=== PATIENT | female | born 1940 | race Caucasian/White ===

== ENCOUNTER → 2017-09-27 | Outpatient (CLI) | payer OTHER ==
[~2017-09-27] VITALS: Ht 160 cm; Wt 60.8 kg
[~2017-09-27] MED LIST: ALEVE220 MG PO; ASPIRIN81 M2 PO; CALCIUM 600 +1 EAC1 PO; COQ-10100 MG PO; FOSAMAX 70 MG T70 MG PO; NAPROSYN500 MG PO; NORFLEX100 MG PO; RED YEAST RICE600 M1 PO; SPIRIVA18 MCG INH; UNICOMPLEX M TA1 TA1 PO
--- NOTE | ~2017-09-27 | HPC ---
[facility] [address] [place] [address] PAIN MANAGEMENT CONSULTATION Name: JOSE STEINBERG [id number] Admission: 09/27/17 Attend Phys: Alexis Arnold DO Discharge: Date of : 42 Report #: [id number] THIS REPORT FOR: //name// CC: Alexis Parisi MD DATE OF SERVICE: 09/27/2017 REFERRING PHYSICIAN: Mary Beth Parisi MD CHIEF COMPLAINT: Low back pain, right lower extremity pain and paresthesias. HISTORY OF PRESENT ILLNESS: As you know, the patient is a 77-year-old female who has been experiencing low back pain and right lower extremity pain since 05/2017. The patient has trialed conservative medical therapy including 6 weeks of formalized physical therapy. Despite these treatment options, her pain remains at level of 5/10. She indicates that assistance in pain was noted with the physical therapy, but it is not sustained. She denies injury or trauma that may have led to symptom development. She has been referred to our service without any imaging studies to evaluate her low back further. She indicates pain is periodic, describes the pain as shooting and pulling. Places current pain score 5/10, daily average at 5/10, and worst pain has been 10/10. The patient states that sleeping, sitting for any length of time exacerbates her symptoms. Movement and stretching appears to improve her pain. She has been referred to our service for suspected lumbar radiculopathy. PAST MEDICAL HISTORY: 1. Lung disease. 2. Emotional problems. 3. Cervical cancer. PAST SURGICAL HISTORY: 1. Hysterectomy. 2. Herniorrhaphy. 3. Shoulder repair. SOCIAL HISTORY: The patient continues to smoke half pack tobacco per day and has done so for greater than 40 years. Denies IV or illicit drug use. Admits to 4 alcohol beverages per week. She is retired. She retired in 06/2017. She is unaccompanied at today's visit. REVIEW OF SYSTEMS: Positive for eye disease, wearing corrective eyewear, cataracts, shortness of breath with walking, lying flat, low back pain, right lower extremity pain with paresthesias. All other review of systems negative per 12-point review of systems other than those listed in the history of present [address] [address] PAIN MANAGEMENT CONSULTATION Name: MARYANJOSE Room #: REG [facility] Delfina#: [id number] Admission: 09/27/17 Attend Phys: Alexis Arnold DO Discharge: Date of : 42 Report #: [id number] illness. Pain impact score 35/70 indicating moderate interference of daily activities secondary to pain. ALLERGIES: PENICILLIN. CURRENT MEDICATIONS: Calcium carbonate, vitamin D, Aleve, coenzyme Q, aspirin, Spiriva, red rice yeast extract. IMAGING: No imaging available. PHYSICAL EXAMINATION: VITAL SIGNS: Blood pressure 160/86, pulse is 92, respiratory rate 16, unlabored. The patient is 97% on room air. Height 5 feet 3 inches tall, weight 134 pounds, BMI calculated 23.7. GENERAL: Well-developed, well-nourished, well-hydrated 77-year-old female appearing her stated age, placing current pain score 5/10. HEENT: Normocephalic, atraumatic. Pupils equal, round, reactive to light. Extraocular muscles are intact. NEUROLOGIC: Speech is fluent. The patient deemed a good historian. LUNGS: Clear, no wheeze, rhonchi or rales. CARDIOVASCULAR: Regular. No appreciable gallop or rub. ABDOMEN: Soft, nontender, nondistended, normoactive bowel sounds. EXTREMITIES: Show no clubbing, no cyanosis, no edema. MUSCULOSKELETAL: Lower extremity strength appears equal and symmetrical 5/5, intact to light touch from L1 through S2 dermatomes. Seated straight leg raising negative. Supine straight leg raising positive on the right. Fern test negative. Modified Gaenslen's positive for axial low back pain. Ankle clonus negative. Babinski is negative. Gait mildly antalgic favoring right lower extremity over left. ASSESSMENT: 1. Symptomatic lumbar radiculopathy. 2. Lumbosacral spondylosis with radicular symptoms. 3. Chronic intractable pain. PLAN: 1. The patient has been referred to our service for what appears to be lumbar radicular symptoms. The patient has trialed conservative medical therapy with 6 weeks of formalized physical therapy program as well as [id number] medication management. Unfortunately, the patient's symptoms have not improved. She has been referred to us today for a suspected lumbar radiculopathy. Unfortunately, the patient comes to us without any type of imaging to assist in determining the source of the symptoms whether this be neural foraminal stenosis, central canal stenosis, a disk protrusion or even arthritic changes [address] [address] PAIN MANAGEMENT CONSULTATION Name: JOSE STEINBERG Room #: REG [facility] Mathis#: [id number] Admission: 09/27/17 Attend Phys: Alexis Arnold DO Discharge: Date of : 42 Report #: [id number] causing stenotic changes. We have discussed with the patient today that imaging would be quite helpful in determining whether or not surgical options may be necessary. The patient was amenable to begin with her imaging studies. She is also considering a lumbar epidural injection and other treatment option that we provided the patient today. The following was provided at this visit. 2. The patient will undergo x-ray imaging of the lumbar spine. We will review the findings once they are available. The patient was sent for x-ray imaging today. We reviewed the x-ray imaging once she returned and does show some fairly significant arthritic changes in the lumbar area. There is some disk height loss. I do feel that further evaluation will be necessary as this does not provide us significant amount of information to help determine whether or not a soft tissue issues are causing the symptoms the patient is currently experiencing. We will be sending the patient for MRI of lumbar spine without contrast. The patient will undergo the imaging studies quickly as possible and return with the results so that we may review further. She was provided a prescription for the MRI today. She will fill this prescription over this next week and will review the findings at followup visit. 3. The patient and I did discuss the risks and benefits of the requested epidural injection. These risks include but not necessarily limited to bleeding, bruising, infection, worsening pain, no relief of pain, also risk of temporary or permanent muscle weakness, temporary or permanent nerve damage, possible paralysis and . The patient states understood and wished to proceed. I did advise the patient at this time that third republican payer restrictions require that authorization be obtained before the patient can undergo an epidural injection. We will begin the authorization process immediately. Once we have achieved this authorization, we will contact the patient to establish a return visit for the first in a series of epidural injections to address lumbar radicular symptoms. 4. No medication changes were provided at today's visit. The patient will continue current medical therapy as previously prescribed. 5. We will see the patient back in followup visit. Once she has completed her MRI and we have received precertification for the patient to undergo the epidural injection requested. 6. We wish to thank the referring physician, Dr. Parisi for the opportunity to see the patient in consultation. We will keep you apprised of her response to treatment as we address suspected lumbar radiculopathy. Again, we wish to thank you for the opportunity to participate in her care. <ELECTRONICALLY SIGNED> By: Alexis Arnold DO 09/28/17 0800 1603 2325 Alexis Arnold DO /nt
[2017-09-27 09:23] VITALS: BP 160/86
== END ==
LOC: PAIN 07:18
DX: M48.061 Spinal stenosis, lumbar region without neurogenic claudication (principal); M41.86 Other forms of scoliosis, lumbar region; M54.16 Radiculopathy, lumbar region; M47.897 Other spondylosis, lumbosacral region; G89.29 Other chronic pain; Z90.710 Acquired absence of both cervix and uterus; Z85.41 Personal history of malignant neoplasm of cervix uteri; Z98.890 Other specified postprocedural states; Z87.891 Personal history of nicotine dependence; Z72.89 Other problems related to lifestyle

== ENCOUNTER → 2017-10-06 | Outpatient (CLI) | payer OTHER | LOC: MRI 09:05 | DX: S33.100A Subluxation of unspecified lumbar vertebra, initial encounter (principal); M48.061 Spinal stenosis, lumbar region without neurogenic claudication; X58.XXXA Exposure to other specified factors, initial encounter; Y93.89 Activity, other specified; Y92.89 Other specified places as the place of occurrence of the external cause; Y99.8 Other external cause status ==

== ENCOUNTER → 2018-02-14 | Outpatient (CLI) | payer OTHER ==
[~2018-02-14] VITALS: Ht 157.5 cm; Wt 58.0 kg
--- NOTE | ~2018-02-14 | HPC ---
[facility] [place] [address] PAIN MANAGEMENT CONSULTATION Name: JOSE STEINBERG Room #: REG [facility] MBisi.#: [id number] Admission: 02/14/18 Attend Phys: Alexis Arnold DO Discharge: Date of : 42 Report #: [id number] THIS REPORT FOR: //name// CC: Alexis Parisi MD DATE OF SERVICE: 02/14/2018 REFERRING PHYSICIAN: Mary Beth Parisi MD CHIEF COMPLAINT: Low back pain, right lower extremity pain and paresthesias. HISTORY OF PRESENT ILLNESS: As you know, the patient is a 77-year-old female who returns today in followup visit with recurrent low back pain, right lower extremity pain. She is now placing pain score 7-8/10. She reports 100% improvement in overall pain with the epidural injection provided 10/12/2017. Unfortunately, the patient's symptoms have begun to return. She denies new injury or new trauma or any changes in medical history since our last visit. She describes the pain as sharp, sore, numbness and tingling; sitting and rising in the morning exacerbates symptoms, stretching, medications and epidural injections have improved pain. She returns today in followup visit requesting to undergo next in the series of epidural injections to build on success of previous intervention. ALLERGIES: PENICILLIN. CURRENT MEDICATIONS: Coenzyme Q 100 mg once a day, naproxen 220 mg 3 times a day, multivitamin 1 tab per day, calcium carbonate 1 tab per day, red yeast rice extract 600 mg once a day, aspirin 81 mg per day, and Spiriva 18 g inhaled once a day. SOCIAL HISTORY: The patient is an everyday smoker, half pack tobacco per day and has done so for 55 years. Denies IV or illicit drug use, admits to approximately 2 alcoholic beverages per day. IMAGING: None available. PQRS: The patient has known osteoarthritis. No rheumatoid arthritis. Pain intensity today is 7-8/10. She is not a fall risk, has not had a fall in the last 3 months. She is not on blood thinner. She is not treated for hypertension. She has not been on opioids for a long period of time. She has a low assessment for opioid addiction. She is placing pain impact score/functional assessment at 20/70. PHYSICAL EXAMINATION: [facility] [address] [place] [address] PAIN MANAGEMENT CONSULTATION Name: JOSE STEINBERG Room #: REG [facility] Delfina#: [id number] Admission: 02/14/18 Attend Phys: Alexis Arnold DO Discharge: Date of : 42 Report #: [id number] VITAL SIGNS: Blood pressure 150/85, pulse 101, respiratory rate 16 and unlabored, the patient is 96% on room air, height 5 feet 2 inches tall, weight 127.8 pounds, and BMI calculated 23.4. GENERAL: Well-developed, well-nourished, well-hydrated 77-year-old female, appearing stated age, placing current pain score 7-8/10. HEENT: Normocephalic, atraumatic. Pupils are equal, round, and reactive to light. Extraocular muscles are intact. EXTREMITIES: Show no clubbing, no cyanosis, and no edema. MUSCULOSKELETAL: Lower extremity strength is symmetrical 5/5. She is intact to light touch from L1 through S2 dermatomes. Seated straight leg raising negative. Supine straight leg raising is positive on the right. Fern's test negative. Modified Gaenslen's positive for axial low back pain. Gait mildly antalgic favoring right lower extremity over left. ASSESSMENT: 1. Symptomatic lumbar radiculopathy. 2. Lumbosacral spondylosis with radiculopathy. 3. Spinal stenosis of lumbar spine. 4. Displacement of a lumbar intervertebral disk with radiculopathy. 5. Chronic intractable pain. PLAN: 1. The patient has returned today in followup visit requesting to undergo epidural injection under fluoroscopic guidance. The patient has noted excellent benefit with previous epidural injection with 100% improvement in overall pain lasting for nearly 3 months. The patient returns stating no new injury and no new trauma that may have led to recurrence of symptoms. She is requesting and we will perform a lumbar epidural injection today. The patient was advised of the risks and benefits of the procedure, states understood and wished to proceed. 2. No medication changes were made at today's visit. The patient to continue current medical therapy as previously prescribed. 3. The patient to return to our clinic on an as needed basis for the next in a series of epidural injections. PROCEDURE NOTE DESCRIPTION OF PROCEDURE: L5-S1 right paramedian epidural steroid injection under fluoroscopic guidance. This is the second procedure of the first series that the patient is undergoing. After obtaining written consent, the patient was taken back to the fluoroscopy suite, placed in a prone position with pillow under the abdomen to decrease lumbar lordosis. The skin overlying the lumbosacral area was then prepped and draped in aseptic fashion. The L5-S1 vertebral interspace was then identified [address] [address] PAIN MANAGEMENT CONSULTATION Name: JOSE STEINBERG Room #: REG Queenie Villalobos#: [id number] Admission: 02/14/18 Attend Phys: Alexis Arnold DO Discharge: Date of : 42 Report #: [id number] by AP fluoroscopy. The skin and subcutaneous tissue overlying the target site of injection was anesthetized with 3 mL 1% lidocaine. A 20-gauge 3-1/2-inch Tuohy needle was then advanced under fluoroscopic guidance towards the epidural space using a right paramedian approach. The epidural space was identified using loss of resistance to air technique. After negative aspiration for heme or cerebrospinal fluid, a total of 1 mL of Omnipaque was injected. A lumbar epidurogram was confirmed using both AP and lateral fluoroscopy. After negative aspiration for heme or cerebrospinal fluid, 5 mL of a solution containing 2 mL 40 mg per mL, 80 mg total triamcinolone, 3 mL lidocaine 1% was injected in increments. Contrast spread was noted posterior epidural space. The needle was then retracted approximately half way and needle tract flushed with 1 mL of 1% lidocaine. Needle was then removed. There were no apparent sensory or motor deficits in the lower extremity following the procedure. A sterile bandage was placed over the injection site. The heart rate, pulse, oximetry and blood pressure were continuously monitored after the procedure. There were no apparent complications. The patient tolerated the procedure well and was carefully escorted to the recovery room in stable condition. There were no apparent complications. After meeting discharge criteria, the patient was then discharged home. <ELECTRONICALLY SIGNED> By: Alexis Arnold DO 02/22/18 1207 1001 1132 Alexis Arnold DO /nt
[2018-02-14 09:03] VITALS: BP 150/85
== END | disposition home or self-care (01) ==
LOC: PAIN 10-26 14:22
DX: M47.27 Other spondylosis with radiculopathy, lumbosacral region (principal); M48.061 Spinal stenosis, lumbar region without neurogenic claudication; M51.16 Intervertebral disc disorders with radiculopathy, lumbar region; G89.29 Other chronic pain; M19.90 Unspecified osteoarthritis, unspecified site; Z79.899 Other long term (current) drug therapy; F17.210 Nicotine dependence, cigarettes, uncomplicated; Z88.0 Allergy status to penicillin; Z79.82 Long term (current) use of aspirin; Z98.890 Other specified postprocedural states

== ENCOUNTER → 2018-08-02 | Outpatient (CLI) | payer OTHER ==
[~2018-08-02] VITALS: Ht 157.5 cm; Wt 56.6 kg
--- NOTE | ~2018-08-02 | HPC ---
[facility] [address] [place] [address] PAIN MANAGEMENT CONSULTATION Name: JOSE STEINBERG Room #: REG CLQueenie Griselda.#: [id number] Admission: 08/02/18 Attend Phys: Alexis Arnold DO Discharge: Date of : 42 Report #: [id number] THIS REPORT FOR: //name// CC: Alexis Parisi MD DATE OF SERVICE: 08/02/2018 CHIEF COMPLAINT: Low back pain, right lower extremity pain with paresthesias. HISTORY OF PRESENT ILLNESS: As you know, the patient is a very pleasant 77-year-old female who returns today in followup visit with recurrent low back pain, right lower extremity pain with paresthesias. She indicates pain is sharp and sore in sensation. She places pain score at 8/10. States that sitting, getting up in the morning exacerbate symptoms. Stretching medication management and previous epidural injection provided excellent benefit. She reports 100% improvement in overall pain with previous epidural injection lasting for almost 3 months. Unfortunately, the patient has had a slow and progressive return of symptoms. She returns today requesting epidural injection to build on success of previous intervention. She denies any injury or trauma that has led to recurrence of symptoms. ALLERGIES: PENICILLIN. CURRENT MEDICATIONS: Tiotropium bromide, aspirin, red yeast rice extract, calcium carbonate, multivitamin, naproxen, coenzyme Q. SOCIAL HISTORY: The patient is an everyday smoker, half pack of tobacco per day and has done so for 55+ years. Denies IV or illicit drug use. Admits to 2 alcohol beverages per day. She is retired, unaccompanied today. IMAGING: No new imaging available. PQRS: The patient has known osteoarthritis of the low back, bilateral hips and bilateral knees. She has no rheumatoid arthritis. She places pain intensity today around 8/10. She is not a fall risk, has not had a fall in the last 3 months. She is not on blood thinners, not treated for hypertension. She has not been on opioids, has a low opioid addiction potential. Pain impact score is rated today at 20/70, mild to moderate. PHYSICAL EXAMINATION: VITAL SIGNS: Blood pressure 140/90, pulse is 85, respiratory rate 16, unlabored. The patient is 93% on room air. Height 5 feet 2 inches tall, weight 124.8 pounds, BMI calculated 22.8. GENERAL: Well-developed, well-nourished, well-hydrated 77-year-old female, [address] [address] PAIN MANAGEMENT CONSULTATION Name: JOSE STEINBERG Room #: REG CLI [facility]BisiElizabetBisi#: [id number] Admission: 08/02/18 Attend Phys: Alexis Arnold DO Discharge: Date of : 42 Report #: [id number] appearing her stated age. She is placing pain score today 8/10. HEENT: Normocephalic, atraumatic. Pupils equal, round, reactive to light. Extraocular muscles are intact. Sclerae nonicteric without injection. NEUROLOGIC: Cranial nerves 2-12 grossly intact. Speech is fluent. EXTREMITIES: Show no clubbing, no cyanosis, no edema. MUSCULOSKELETAL: Lower extremity strength is symmetrical, again today 5/5, intact to light touch from L1 through S2 dermatomes. Seated straight leg raising negative. Supine straight leg raising remains positive right at about 40 degrees. Fern's test negative. Modified Gaenslen's is positive for axial low back pain. Gait mildly antalgic again favoring right lower extremity over left. Ankle clonus negative. Babinski is negative. ASSESSMENT: 1. Symptomatic lumbar radiculopathy. 2. Spinal stenosis of lumbar spine. 3. Displacement of lumbar intervertebral disk with radiculopathy. 4. Lumbosacral spondylosis with radiculopathy. 5. Chronic intractable pain. PLAN: 1. The patient returns today in followup visit requesting to undergo epidural injection under fluoroscopic guidance. The patient reports 100% improvement in overall pain with the epidural injection provided at last visit. She had 3 months' worth of improvement in symptoms prior to return of symptoms. She returns requesting this epidural injection to build on success of previous intervention. I have advised the patient the risks and benefits, states she understood and wished to proceed. 2. No medication changes made at today's visit. The patient to continue current medical therapy as previously prescribed. 3. The patient to return to our clinic on an as needed basis for the next in the series of epidural injections. <ELECTRONICALLY SIGNED> By: Alexis Arnold DO 08/08/18 1259 1020 1436 Alexis Arnold DO /nt
--- NOTE | ~2018-08-02 | P ---
[facility] [place] [address] [place] [address] PROCEDURE REPORT Name: JOSE STEINBERG Room #: REG [facility] Delfina#: [id number] Admission: 08/02/18 Attend Phys: Alexis Arnold DO Discharge: Date of : 42 Report #: [id number] THIS REPORT FOR: //name// CC: Alexis Parisi MD DATE OF SERVICE: 08/02/2018 DESCRIPTION OF PROCEDURE: L5-S1 right paramedian epidural steroid injection under fluoroscopic guidance. After obtaining written consent, the patient was taken back to fluoroscopy suite, placed in prone position with pillow under abdomen to decrease lumbar lordosis. Skin overlying lumbosacral area then prepped and draped in aseptic fashion. Lumbar intervertebral spaces were identified by AP fluoroscopy. Skin and subcutaneous tissue overlying target site of injection was anesthetized with 3 mL of 1% lidocaine. A 20-gauge 3-1/2-inch Tuohy needle advanced under fluoroscopic guidance towards the epidural space using a right paramedian approach. Epidural space identified using loss of resistance to air technique. After negative aspiration for heme or cerebrospinal fluid, 1 mL of Omnipaque injected. Lumbar epidurogram confirmed using both AP and lateral fluoroscopy. After negative aspiration for heme or cerebrospinal fluid, 5 mL of a solution containing 2 mL 40 mg per mL, 80 mg total triamcinolone, 3 mL lidocaine 1% injected slowly. Needle retracted retirement, flushed with 1 mL of 1% lidocaine and removed. Sterile bandage placed over injection site. No new motor deficits present in lower extremity following procedure. The patient tolerated procedure well, carefully escorted to recovery room in stable condition. No apparent complication. After meeting discharge criteria, the patient discharged home. <ELECTRONICALLY SIGNED> By: Alexis Arnold DO 08/08/18 1259 1020 1440 Alexis Arnold DO /nt
[2018-08-02 08:55] VITALS: BP 148/90
== END | disposition home or self-care (01) ==
LOC: PAIN 06:39
DX: M51.16 Intervertebral disc disorders with radiculopathy, lumbar region (principal); M48.061 Spinal stenosis, lumbar region without neurogenic claudication; M47.27 Other spondylosis with radiculopathy, lumbosacral region; G89.29 Other chronic pain; F17.210 Nicotine dependence, cigarettes, uncomplicated; Z88.0 Allergy status to penicillin; Z79.82 Long term (current) use of aspirin

== ENCOUNTER → 2018-12-26 | Outpatient (CLI) | payer OTHER ==
[~2018-12-26] VITALS: Ht 157.5 cm; Wt 53.9 kg
[~2018-12-26] MED LIST changes: +ALENDRONATE SOD70 MG PO; +BREO ELLIPTA 11 EACH INH; +RED YEAST RICE600 MG PO; +VENTOLIN HFA 1818 GM
[2018-12-26 09:34] VITALS: BP 170/90
--- NOTE | 2018-12-26 09:53 | NUR ---
Pain Clinic Assessment: 1. History of Osteoarthritis: HANDS History of Rheumatoid Arthritis: Not Applicable 2. Height: 5 ft. 2 in. 157.5 cm. Weight: 118.8 lb. oz. 53.887 kg. Patient's BMI: 21.7 3. Vital Signs: BP: 170/90 Pulse: 88 Resp: 18 Temp: 02 Sat: 100 ECG Mon: 4. Pain Intensity: 7 5. Fall Risk: Dizziness: N Needs help standing or walking: N Fallen in the last 3 months: N Fall risk comments: 6. Patient on Blood Thinner: None 7. History of Hypertension: N 8. Opioid Therapy greater than 6 weeks: N Opiate Contract Signed: 9. Risk Assessment Tool Provided: LOW RISK 0/3 10. Functional Assessment Tool: 11. Recreational Drug Use: Never Drug Type: Tobacco Use: Current Every Day Smoker Tobacco Type: Cigarettes Amount or Packs/day: 0.5 How Many Years: 50 Alcohol Use: Yes Frequency: Weekly Quant:
--- NOTE | 2019-01-02 07:34 | HPC ---
[facility] [address] [place] [address] PAIN MANAGEMENT CONSULTATION Name: JOSE STEINBERG Room #: REG ONEAL Griselda.#: [id number] Admission: 12/26/18 ������������������ Attend Phys: Alexis Arnold DO Discharge: ������������������ Date of : 44 Report #: [id number] THIS REPORT FOR: //name// CC: Alexis Parisi MD DATE OF SERVICE: 12/26/2018 CHIEF COMPLAINT: Low back pain, right lower extremity pain and paresthesias. HISTORY OF PRESENT ILLNESS: As you know, the patient is a very pleasant 78-year-old female returning in followup visit requesting to undergo next in the series of lumbar epidural injections under fluoroscopic guidance. The patient indicates good efficacy with previous epidural injection up to 90% improvement in overall pain. Unfortunately, her symptoms have begun to return, now reporting about 70% overall. She returns requesting to undergo a lumbar epidural injection under fluoroscopic guidance to build on success of previous intervention. She denies injury or trauma that may have led to symptom recurrence. It is also noted the patient's blood pressure is elevated, but has been elevated in each visit since our initial visit. We recommend the patient follow up with her PCP in regards to this. ALLERGIES: PENICILLIN. CURRENT MEDICATIONS: Coenzyme Q, naproxen, multivitamin, calcium carbonate, red yeast rice extract, aspirin, Spiriva. SOCIAL HISTORY: The patient is an everyday smoker, half pack tobacco per day and has done so for greater than 55 years. Denies IV or illicit drug use. Admits to 2 alcohol beverages per day. She is unaccompanied today. IMAGING: No new imaging available. PQRS: The patient has known arthritic changes of the bilateral hands, bilateral wrists, low back and bilateral hips. No rheumatoid arthritis. Pain intensity today is rated anywhere to 7-8/10. She is not a fall risk and has not had a fall in the last 3 months. She is not on blood thinners. She is not treated for hypertension. She has not been on in long-term opioids. She has a low assessment for opioid addiction. Pain impact score 22/70 [id number] interference of daily activity secondary to pain. PHYSICAL EXAMINATION: GENERAL: Well-developed, well-nourished, well-hydrated 78-year-old female appearing her stated age, placing current pain score up to 6/10. HEENT: Normocephalic, atraumatic. Pupils equal, round, reactive to light. [facility] [address] [place] [address] PAIN MANAGEMENT CONSULTATION Name: JOSE STEINBERG Room #: REG CLI [facility].#: [id number] Admission: 12/26/18 ������������������ Attend Phys: Alexis Arnold DO Discharge: ������������������ Date of : 42 Report #: [id number] EXTREMITIES: Show no clubbing, no cyanosis, no edema. MUSCULOSKELETAL: Lower extremity strength is symmetrical 5/5, intact to light touch from L1 through S2 dermatomes. Seated straight leg raising negative. Supine straight leg raising positive right. ASSESSMENT: 1. Symptomatic lumbar radiculopathy. 2. Lumbosacral spondylosis with radiculopathy. 3. Spinal stenosis of the lumbar spine. 4. Displacement of lumbar intervertebral disk with radiculopathy. 5. Chronic intractable pain. PLAN: 1. The patient has returned today in followup visit requesting to undergo a lumbar epidural injection under fluoroscopic guidance. As you are aware, the patient did very well with previous epidural injection, near 100% improvement in overall pain lasting for an extended period of time, there has been a reduction in the efficacy of this down to 70% improvement. There is ongoing. She returns today in followup visit to undergo next in the series of epidural injections. She has been advised the risks and benefits, states understood and wished to proceed. 2. The patient's blood pressure remains elevated today and has been elevated at prior evaluations. The patient's initial evaluation, blood pressure was 160/86, followup visit was 160/88 and a third followup visit has blood pressure at 150/85 and her last visit was blood pressure of 148/90. Blood pressure today is 170/80. We have recommended the patient follow up with the PCP in regards to possible treatment for essential hypertension. 3. No medication changes made at today's visit. The patient will continue current medical therapy as previously prescribed. 4. We will see the patient back in followup visit on an as needed basis for next in the series of lumbar epidural injections. PROCEDURE NOTE DESCRIPTION OF PROCEDURE: L5-S1 right paramedian epidural steroid injection under fluoroscopic guidance. This is the third procedure of the first series that the patient is undergoing. After obtaining written consent, the patient was taken back to the fluoroscopy suite, placed in a prone position with pillow under the abdomen to decrease lumbar lordosis. The skin overlying the lumbosacral area was then prepped and draped in aseptic fashion. The L5-S1 vertebral interspace was then identified by AP fluoroscopy. The skin and subcutaneous tissue overlying the target site of injection was anesthetized with 3 mL 1% lidocaine. [address] [address] PAIN MANAGEMENT CONSULTATION Name: JOSE STEINBERG Room #: REG ONEAL Mathis#: [id number] Admission: 12/26/18 ������������������ Attend Phys: Alexis Arnold DO Discharge: ������������������ Date of : 42 Report #: [id number] An 20 gauge 3.5 inch Tuohy needle was then advanced under fluoroscopic guidance towards the epidural space using a right paramedian approach. The epidural space was identified using loss of resistance to air technique. After negative aspiration for heme or cerebrospinal fluid, a total of 1 mL of Omnipaque was injected. A lumbar epidurogram was confirmed using both AP and lateral fluoroscopy. After negative aspiration for heme or cerebrospinal fluid, 5 mL of solution containing 2 mL 40 mg/mL 80 mg triamcinolone, 3 mL lidocaine 1% was injected in increments. Contrast spread was noted post epidural space. The needle was then retracted approximately half way and needle tract flushed with 1 mL of 1% lidocaine. Needle was then removed. There were no apparent sensory or motor deficits in the lower extremity following the procedure. A sterile bandage was placed over the injection site. The heart rate, pulse, oximetry and blood pressure were continuously monitored after the procedure. There were no complications. The patient tolerated the procedure well and was carefully escorted to the recovery room in stable condition. There were no apparent complications. After meeting discharge criteria, the patient was then discharged home. ��������������������������������������������� <ELECTRONICALLY SIGNED> ���������������������������������������� By: Alexis Arnold DO ��������������������������������������������� 01/02/19 0734 [id number] Alexsi Arnold DO /nt
== END | disposition home or self-care (01) ==
LOC: PAIN 06:48
DX: M51.16 Intervertebral disc disorders with radiculopathy, lumbar region (principal); M47.27 Other spondylosis with radiculopathy, lumbosacral region; M48.061 Spinal stenosis, lumbar region without neurogenic claudication; G89.29 Other chronic pain; F17.210 Nicotine dependence, cigarettes, uncomplicated; M19.90 Unspecified osteoarthritis, unspecified site; Z79.899 Other long term (current) drug therapy; Z88.0 Allergy status to penicillin; Z79.82 Long term (current) use of aspirin; Z98.890 Other specified postprocedural states

== ENCOUNTER → 2019-04-17 | Outpatient (CLI) | payer OTHER ==
[~2019-04-17] VITALS: Ht 157.5 cm; Wt 51.2 kg
[2019-04-17 09:52] VITALS: BP 189/107
--- NOTE | 2019-04-17 10:07 | NUR ---
Pain Clinic Assessment: 1. History of Osteoarthritis: HANDS History of Rheumatoid Arthritis: Not Applicable 2. Height: 5 ft. 2 in. 157.5 cm. Weight: 112.8 lb. oz. 51.166 kg. Patient's BMI: 20.6 3. Vital Signs: BP: 189/107 Pulse: 90 Resp: 14 Temp: 02 Sat: 97 ECG Mon: 4. Pain Intensity: 9 5. Fall Risk: Dizziness: N Needs help standing or walking: Y Fallen in the last 3 months: N Fall risk comments: 6. Patient on Blood Thinner: None 7. History of Hypertension: N 8. Opioid Therapy greater than 6 weeks: N Opiate Contract Signed: 9. Risk Assessment Tool Provided: LOW RISK 0/3 10. Functional Assessment Tool: 11. Recreational Drug Use: Never Drug Type: Tobacco Use: Current Every Day Smoker Tobacco Type: Cigarettes Amount or Packs/day: 1/2-1 PACK How Many Years: Alcohol Use: Yes Frequency: Weekly Quant: 1-2
--- NOTE | 2019-04-25 12:17 | HPC ---
[facility] [place] [address] PAIN MANAGEMENT CONSULTATION Name: JOSE STEINBERG [id number] Admission: 04/17/19 ������������������ Attend Phys: Alexis Arnold DO Discharge: ������������������ Date of : 44 Report #: [id number] THIS REPORT FOR: //name// CC: MARY BETH Parisi DATE OF SERVICE: 04/17/2019 REFERRING PHYSICIAN: Mary Beth Parisi MD. CHIEF COMPLAINT: Low back pain, right lower extremity pain with paresthesias. HISTORY OF PRESENT ILLNESS: As you know, the patient is a 78-year-old female returning in followup visit, requesting to undergo next in the series of lumbar epidural injections under fluoroscopic guidance. She reports pain today at level of 9/10. She states the pain is sharp and shooting in sensation, exacerbated with standing and walking, improves with medications and previous epidural injection, which gave 100% improvement in overall pain, lasting for nearly 3 months. She returns today in followup visit requesting to undergo this epidural injection to build on success of previous intervention. ALLERGIES: PENICILLIN. CURRENT MEDICATIONS: Coenzyme Q, naproxen, multivitamin, calcium carbonate, red yeast rice extract, aspirin, Spiriva. SOCIAL HISTORY: The patient is an everyday smoker, half pack tobacco per day, has done so for greater than 55 years. Denies IV or illicit drug use. Denies any chronic alcohol use. She is unaccompanied today. IMAGING: No imaging is available. PHYSICAL EXAMINATION: VITAL SIGNS: Blood pressure 189/107, pulse is 90, respiratory rate 14 and unlabored. The patient is 97% on room air. Height 5 feet 2 inches tall, weight 112.8 pounds, BMI calculated 20.6. GENERAL: Well-developed, well-nourished, well-hydrated 78-year-old female. She is in no acute distress. Pain is rated around 9/10. HEENT: Normocephalic, atraumatic. Pupils equal, round, reactive to light. Speech is fluent. EXTREMITIES: Show no clubbing, no cyanosis and no edema. MUSCULOSKELETAL: Lower extremity strength remains symmetrical again today 5/5, intact to light touch from L1 through S2 dermatomes. Seated straight leg raising negative. Supine straight leg raising positive on the left. Fern test negative. Modified Gaenslen's positive for axial low back pain. [facility] [address] [place] [address] PAIN MANAGEMENT CONSULTATION Name: JOSE STEINBERG Room #: REG CL Delfina#: [id number] Admission: 04/17/19 ������������������ Attend Phys: Alexis Arnold DO Discharge: ������������������ Date of : 44 Report #: [id number] ASSESSMENT: 1. Symptomatic lumbar radiculopathy. 2. Spinal stenosis of the lumbar spine. 3. Displacement of lumbar intervertebral disk with radiculopathy. 4. Lumbosacral spondylosis with radiculopathy. 5. Essential hypertension. 6. Chronic intractable pain. PLAN: 1. The patient returns today in followup visit to undergo next in the series of epidural injections under fluoroscopic guidance. She is extremely pleased with response to the previous epidural injection providing 100% improvement in overall pain lasting for nearly 3 months. She returns today in followup visit to undergo next in the series. She denies any new injury, new trauma or any changes in medical history since our last visit. She has been advised risks and benefits of procedure, states understood and wished to proceed. 2. The patient's blood pressure is once again elevated, pressure today is 189/107. This is the third time we have seen the patient and the third time this patient's blood pressure has been elevated, this is the highest elevation we have seen. The patient needs to follow up with her PCP immediately for adjustments in her medications. This is not a response to pain as the patient's heart rate does not show significant changes from previous evaluations, but the blood pressure is extremely high today. Adjustments need to be made. I will defer to primary team for adjustments in this therapy. 3. We will see the patient back in followup visit on an as needed basis for possible next in a series of lumbar epidural injections to address lumbar radicular symptoms secondary to spinal stenosis. PROCEDURE NOTE DESCRIPTION OF PROCEDURE: L5-S1 right paramedian epidural steroid injection under fluoroscopic guidance. This is the first procedure of the second series that the patient is undergoing. After obtaining written consent, the patient was taken back to the fluoroscopy suite, placed in a prone position with pillow under the abdomen to decrease lumbar lordosis. The skin overlying the lumbosacral area was then prepped and draped in aseptic fashion. The L5-S1 vertebral interspace was then identified by AP fluoroscopy. The skin and subcutaneous tissue overlying the target site of injection was anesthetized with 3 mL 1% lidocaine. A 20-gauge 3-1/2 inch Tuohy needle was then advanced under fluoroscopic guidance towards the epidural space using a right paramedian approach. The epidural space was identified using loss of resistance to air technique. After negative [facility] [address] [place] [address] PAIN MANAGEMENT CONSULTATION Name: JOSE STEINBERG Room #: REG ONEAL Mathis#: [id number] Admission: 04/17/19 ������������������ Attend Phys: Alexis Arnold DO Discharge: ������������������ Date of : 42 Report #: [id number] aspiration for heme or cerebrospinal fluid, a total of 1 mL of Omnipaque was injected. A lumbar epidurogram was confirmed using both AP and lateral fluoroscopy. After negative aspiration for heme or cerebrospinal fluid, 5 mL of a solution containing 2 mL 40 mg per mL, 80 mg total triamcinolone, 3 mL lidocaine 1% was injected in increments. Contrast spread was noted in postepidural space. The needle was then retracted approximately half way and needle tract flushed with 1 mL of 1% lidocaine. Needle was then removed. There were no apparent sensory or motor deficits in the lower extremity following the procedure. A sterile bandage was placed over the injection site. The heart rate, pulse, oximetry and blood pressure were continuously monitored after the procedure. There were no apparent complications. The patient tolerated the procedure well and was carefully escorted to the recovery room in stable condition. There were no apparent complications. After meeting discharge criteria, the patient was then discharged home. ��������������������������������������������� <ELECTRONICALLY SIGNED> ���������������������������������������� By: Alexis Arnold DO ��������������������������������������������� 04/25/19 1217 [id number] Alexis Arnold DO /nt
== END | disposition home or self-care (01) ==
LOC: PAIN 06:37
DX: M51.16 Intervertebral disc disorders with radiculopathy, lumbar region (principal); M48.061 Spinal stenosis, lumbar region without neurogenic claudication; M47.27 Other spondylosis with radiculopathy, lumbosacral region; I10 Essential (primary) hypertension; G89.29 Other chronic pain; F17.210 Nicotine dependence, cigarettes, uncomplicated; Z88.0 Allergy status to penicillin; Z79.82 Long term (current) use of aspirin; Z79.899 Other long term (current) drug therapy; Z98.890 Other specified postprocedural states

== ENCOUNTER → 2019-12-26 | Outpatient (CLI) | payer OTHER | LOC: MRI 09:14 | DX: M43.16 Spondylolisthesis, lumbar region (principal); M47.26 Other spondylosis with radiculopathy, lumbar region; M47.812 Spondylosis without myelopathy or radiculopathy, cervical region; M48.062 Spinal stenosis, lumbar region with neurogenic claudication; M48.02 Spinal stenosis, cervical region; M25.78 Osteophyte, vertebrae; M50.31 Other cervical disc degeneration, high cervical region; M65.88 Other synovitis and tenosynovitis, other site; M41.86 Other forms of scoliosis, lumbar region; M53.86 Other specified dorsopathies, lumbar region; M51.27 Other intervertebral disc displacement, lumbosacral region; M51.16 Intervertebral disc disorders with radiculopathy, lumbar region; K80.20 Calculus of gallbladder without cholecystitis without obstruction ==